=== PATIENT | female | born 1960 | race Caucasian/White ===

== ENCOUNTER 2017-05-09 08:51 | Day surgery (SDC) | payer OTHER ==
[~2017-05-09] VITALS: Ht 157.5 cm; Wt 55.5 kg
[~2017-05-09 08:51] MED LIST: ALPR.25 PO; AMIT25TA20 PO; ASCO500 PO; FOSA70TA PO; MAGN250T13 PO; RANI150 PO; TAB-TAB PO
[2017-05-09 09:06] VITALS: BP 145/87; PULSE 102; RESP 20; TEMP 95.9; O2SAT 98
[2017-05-09] MEDS ORDERED: AMIT25TA9 PO (09:32)
[2017-05-09] MEDS ORDERED: SM M250T (09:32)
[2017-05-09] MEDS ORDERED: FOSA70TA PO (09:32)
[2017-05-09] MEDS ORDERED: ONCETAB7 (09:32)
[2017-05-09] MEDS ORDERED: ASCO500T PO (09:32)
[2017-05-09] MEDS ORDERED: ZANT150T2 PO (09:32)
[2017-05-09] MEDS ORDERED: ALPR.25 PO (09:32)
[2017-05-09] MEDS ORDERED: LIDOCAINE 1%/EPINEPHrine 1:100,000 SOLN 20 ML VIAL ONE (11:50)
[2017-05-09] MEDS ORDERED: MIDAZOLAM HCL 5 MG/5 ML VIAL ONE (11:57)
[2017-05-09] MEDS ORDERED: fentaNYL CITRATE 250 MCG/5 ML AMP ONE (11:57)
--- NOTE | 2017-05-09 12:46 | PD.RAD ---
Post CT Procedure Prog Note Pre Procedure Diagnosis: (1) Elevated LFTs Post Procedure Diagnosis: Procedure Date: May 09, 2017 Supervising Radiologist: Uday Hardy Proceduralist/Assist: Dana Rodriges Anesthesia: Conscious Sedation Plan of Activity Patient to Unit: ROPU Patient Condition: Good See PACS Report for procedural detail/treatment Uday Hardy MD May 09, 2017 12:45
[2017-05-09 13:00] VITALS: BP 139/82; PULSE 106; RESP 20; TEMP 97.4; O2SAT 97
[2017-05-09 13:15] VITALS: BP 139/82; PULSE 102; RESP 20; O2SAT 97
[2017-05-09 13:45] VITALS: BP 122/77; PULSE 86; RESP 20; O2SAT 98
[2017-05-09 14:15] VITALS: BP 132/83; PULSE 86; RESP 20; O2SAT 99
[2017-05-09] MEDS ORDERED: ONDANSETRON HCL 4 MG/2 ML VIAL IV PUSH ONE (15:15)
--- NOTE | 2017-05-09 15:47 | RADRPT ---
EXAM DATE/TIME: 05/09/2017 12:24 [place] COMPARISON: No previous studies available for comparison. INDICATIONS : Elevated liver function. SEDATION TIME: 30 minutes BIOPSY SITE: Right upper quadrant. MEDICATION(S): 1.) 3.5 mg midazolam (Versed) IV 2.) 175 mcg fentanyl (Sublimaze) IV DEVICE(S): 1.) 18 gauge Temno core biopsy needle MEDICAL HISTORY : Gastroesophageal reflux disease. Renal calculi. Osteoporosis. SURGICAL HISTORY : Hysterectomy. ENCOUNTER: Initial ACUITY: 1 day PAIN SCORE: 0/10 LOCATION: Right upper quadrant A total of one core specimen(s) were obtained and sent to the laboratory for pathologic evaluation. PROCEDURE: 1. CT guided liver biopsy. 2. Conscious sedation with continuous EKG and oximetry monitoring. 3. EKG and oximetry remained stable throughout the procedure. Prior to the procedure informed consent was obtained. Any appropriate prior imaging studies were rev iewed. Using automated exposure control and adjustment of the mA and/or kV according to patient size, radiat ion dose was kept as low as reasonably achievable to obtain optimal diagnostic quality images. DICOM format image data is available electronically for review and comparison. The site was prepped in a sterile fashion. Full sterile technique was used, including cap, mask, alex rile gloves and gown and a large sterile sheet. Hand hygiene and 2% chlorhexidine and/or betadine/al cohol prep was utilized per protocol for cutaneous antisepsis. The skin and subcutaneous tissues wer e infiltrated with local anesthetic solution. With CT guidance the previously identified target was localized. Biopsy was performed using the presc ribed needle as above. Adequate hemostasis was obtained with compression at the puncture site. Follow-up CT scan reveals no hemorrhage. The patient tolerated the procedure well and there were no complications. The patient was returned to the Radiology Outpatient Unit in stable condition. CONCLUSION: Uncomplicated CT guided biopsy. Uday Hardy MD on May 09, 2017 at 15:45 Board Certified Radiologist. This report was verified electronically.
== END 2017-05-09 17:00 | disposition home or self-care (01) ==
LOC: HRAD 08:51 → HRIP 08:52 → HRAD 17:00
PROVIDERS: ATTEND Internal Medicine Gastroenterology
DX: K73.9 Chronic hepatitis, unspecified (principal); K76.0 Fatty (change of) liver, not elsewhere classified; K21.9 Gastro-esophageal reflux disease without esophagitis; M81.0 Age-related osteoporosis without current pathological fracture
CPT/HCPCS: 47000; 77012; 88307; 88313; J2250; J2405; J3010